=== PATIENT | male | born 1950 | race Caucasian/White ===

== ENCOUNTER 2017-03-25 09:14 | Day surgery (SDC) | payer MEDICARE ==
[~2017-03-25] VITALS: Ht 175.3 cm; Wt 100.7 kg
== END 2017-03-25 14:00 | disposition home or self-care (01) ==
LOC: ORSCSDS 09:14
PROVIDERS: Student in an Organized Health Care Education/Training Program
PROC: 0SGM04Z Fusion of Right Metatarsal-Phalangeal Joint with Internal Fixation Device, Open Approach (ICD-10-PCS; principal; 2017-03-25 10:30)
DX: M20.21 Hallux rigidus, right foot (principal); M19.071 Primary osteoarthritis, right ankle and foot; M79.674 Pain in right toe(s)
CPT/HCPCS: C1776; J0690; J1100; J2250; J2405; J3010; J7120

== ENCOUNTER 2018-03-29 11:53 | Day surgery (SDC) | payer MEDICARE ==
[~2018-03-29] VITALS: Ht 177.8 cm; Wt 99.2 kg
== END 2018-03-29 13:55 | disposition home or self-care (01) ==
LOC: ORSCSDS 11:53
PROVIDERS: Surgery
PROC: 0DJD8ZZ Inspection of Lower Intestinal Tract, Via Natural or Artificial Opening Endoscopic (ICD-10-PCS; principal; 2018-03-29 13:00)
DX: Z12.11 Encounter for screening for malignant neoplasm of colon (principal); K64.8 Other hemorrhoids; Z79.899 Other long term (current) drug therapy; Z79.82 Long term (current) use of aspirin; Z87.891 Personal history of nicotine dependence
CPT/HCPCS: J7120

== ENCOUNTER 2020-06-04 13:30 | Day surgery (SDC) | payer OTHER, MEDICARE ==
[~2020-06-04] VITALS: Ht 177.8 cm; Wt 99.2 kg
[2020-06-04] MEDS ORDERED: MELO7.5 PO (14:40)
[2020-06-04] MEDS ORDERED: TURMERIC500 M2 (14:41)
== END 2020-06-04 17:00 | disposition home or self-care (01) ==
LOC: ORSCSDS 13:30
PROVIDERS: Orthopaedic Surgery
PROC: 0PH Upper Bones, Insertion (ICD-10-PCS; principal; 2020-06-04 14:45)
PROC: 01N50ZZ Release Median Nerve, Open Approach (ICD-10-PCS; principal; 2020-06-04 14:45)
DX: G56.01 Carpal tunnel syndrome, right upper limb (principal); S62.001A Unspecified fracture of navicular [scaphoid] bone of right wrist, initial encounter for closed fracture; G47.33 Obstructive sleep apnea (adult) (pediatric); K21.9 Gastro-esophageal reflux disease without esophagitis; Z87.891 Personal history of nicotine dependence; I10 Essential (primary) hypertension; Z79.82 Long term (current) use of aspirin
CPT/HCPCS: C1713; C1769; J0690; J1885; J2250; J2704; J2795; J3010; J7120

== ENCOUNTER 2024-08-31 03:32 | Observation (INO) | payer OTHER ==
[~2024-08-31] VITALS: Ht 177.8 cm; Wt 92.0 kg
[~2024-08-31 03:32] MED LIST: MELO7.5 PO; TURMERIC500 M2
[2024-08-31 03:53] LABS: BASOPHILS ABSOLUTE AUTO 0.07 K/mm3 (0.00-0.23); BASOPHILS PERCENT AUTO 1 % (0-2); EOSINOPHILS ABSOLUTE AUTO 0.17 K/mm3 (0.00-0.68); EOSINOPHILS PERCENT AUTO 1 % (0-6); Hematocrit 37.5 % (37.0-53.0); Hemoglobin 12.8 g/dL (13.5-17.5); IMMATURE GRAN ABSOLUTE AUTO 0.05 K/mm3 (0.00-0.10); IMMATURE GRAN PERCENT AUTO 0 % (0-1); LYMPHOCYTES ABSOLUTE AUTO 1.27 K/mm3 (0.84-5.20); LYMPHOCYTES PERCENT AUTO 9 % (21-46); MONOCYTES ABSOLUTE AUTO 0.99 K/mm3 (0.16-1.47); MONOCYTES PERCENT AUTO 7 % (4-13); Mean Corpuscular HGB 30.4 pg (26.0-34.0); Mean Corpuscular HGB Conc 34.1 g/dL (31.5-36.5); Mean Corpuscular Volume 89 fL (80-100); Mean Platelet Volume 8.8 fL (9.1-12.4); NEUTROPHILS ABSOLUTE AUTO 11.24 K/mm3 (1.96-9.15); NEUTROPHILS PERCENT AUTO 82 % (41-73); Platelet Count 284 K/mm3 (150-400); RDW Coefficient Variation 12.2 % (11.7-14.2); RDW Standard Deviation 39.6 fL (35.1-46.3); Red Blood Cell Count 4.21 M/mm3 (4.30-5.90); White Blood Cell Count 13.79 K/mm3 (4.00-11.30)
[2024-08-31 04:26] LABS: Albumin, Blood 3.3 g/dL (3.4-5.0); Albumin/Globulin Ratio 0.8 (0.8-1.8); Bilirubin, Total 0.5 mg/dL (0.1-1.0); Bun/Creatinine Ratio 7.9 (12.0-20.0); Creatinine, Blood 11.2 mg/dL (0.60-1.20); Globulin, Blood 4.2 g/dL (2.2-4.0); Potassium, Blood 5.7 mmol/L (3.5-5.5); Total Protein, Blood 7.5 g/dL (6.4-8.2)
[2024-08-31 04:35] LABS: Source, Urine Clean Catch
[2024-08-31 04:38] LABS: Bilirubin, Urine Neg (Neg); Blood, Urine 4+ (Neg); Glucose Qualitative, Urine Neg (Neg); Ketones, Urine Neg (Neg); Leukocyte Esterase, Urine Neg (Neg); Nitrite, Urine Neg (Neg); Protein, Urine 1+ (Neg); Specific Gravity, Urine 1.015 (1.003-1.022); Urobilinogen, Urine NORM (Normal)
[2024-08-31 04:44] LABS: Appearance, Urine Clear (Clear); Color, Urine Pale Yellow (P-Yellow)
[2024-08-31 04:45] LABS: Bacteria Rare /hpf; Squamous Epithelial Cells Rare /hpf (Few); White Blood Cells, Urine 0-2 /hpf (0-5)
[2024-08-31] MEDS ORDERED: NS 1,000 ML IV SCH (04:55)
[2024-08-31] MEDS ORDERED: Acetaminophen 325 MG TABLET PO PRN (05:50)
[2024-08-31] MEDS ORDERED: Ondansetron HCl 2 MG / ML 2ML Vial IV PRN (05:50)
[2024-08-31] MEDS ORDERED: Sodium Bicarb 8.4% Inj 150 MEQ in Dextrose 5% 1,000 ML IV SCH (06:30)
[2024-08-31 09:00] VITALS: BP 151/77
--- NOTE | 2024-08-31 10:39 | NUR ---
ASSUMPTION OF CARE: INFUSIONS: D5 150MEQ BIACARBAT 125 PATIENT IS ALERT AND ORIENTED X 4 ABLE TO MAKE NEEDS KNOWN, PLEASANT, MUCH IMPROVEMENT AFTER SOSA INSERTION BY THE ED, NO ACTUE CONCERNS NOTED AT TIME OF ARRIVAL SLIGHTLY HYPERTENSIVE AT 150'S SYSTOLIC, BLE EDEMA LEFT > RIGHT. DENIES CHEST PAIN PRESSURE OR SOB. PLAN OF CARE CONTINUES.
[2024-08-31 11:03] LABS: Anion Gap 10 mmol/L (3-11); Blood Urea Nitrogen 61 mg/dL (8-24); Bun/Creatinine Ratio 10.9 (12.0-20.0); CO2, Blood 26 mmol/L (21-32); Chloride, Blood 104 mmol/L (98-108); Creatinine, Blood 5.58 mg/dL (0.60-1.20); Glomerular Filtration Rate 10 (60-); Glucose, Blood 131 mg/dL (70-99); Phosphorus, Blood 4.4 mg/dL (2.5-4.9); Potassium, Blood 4.3 mmol/L (3.5-5.5); Sodium, Blood 136 mmol/L (136-145)
[2024-08-31 11:44] VITALS: BP 144/75
[2024-08-31 15:15] VITALS: BP 150/68
[2024-08-31] MEDS ORDERED: Lactated Ringer's 1,000 ML IV SCH (16:10)
--- NOTE | 2024-08-31 17:22 | NUR ---
EOS: ONLY CHANGES FROM ASSUMPTION IS PATIENT SWITCHED TO LR FOR INFUSION, DENIES PAIN OF ANY KIND. MILD SYSTOLIC HYPERTENSION. NO ACUTE CONCERNS FROM THIS RN PLAN OF CARE CONTINUES
[2024-08-31 19:42] VITALS: BP 162/84
[2024-09-01 03:29] VITALS: BP 150/89
[2024-09-01 04:05] LABS: Hematocrit 35.5 % (37.0-53.0); Hemoglobin 11.7 g/dL (13.5-17.5); Mean Corpuscular HGB 29.6 pg (26.0-34.0); Mean Corpuscular Volume 90 fL (80-100); Platelet Count 248 K/mm3 (150-400); RDW Coefficient Variation 12.1 % (11.7-14.2); RDW Standard Deviation 39.8 fL (35.1-46.3); Red Blood Cell Count 3.95 M/mm3 (4.30-5.90); White Blood Cell Count 9.86 K/mm3 (4.00-11.30)
[2024-09-01 04:30] LABS: Bun/Creatinine Ratio 20.1 (12.0-20.0); Calcium, Blood 8.3 mg/dL (8.5-10.1); Creatinine, Blood 0.9 mg/dL (0.60-1.20)
--- NOTE | 2024-09-01 05:04 | NUR ---
SHIFT SUMMARY PT IS A&O X4, ABLE TO MAKE NEEDS KNOWN. VSS, AFEBRILE, SPO2 >92% ON RA. PT USES CPAP WHILE ASLEEP. SOSA DRAINING CLEAR YELLOW URINE TO GRAVITY. PT DENIES SOB OR CP. BED IN LOWEST POSITION, CALL LIGHT IN REACH, BREATHING IS EVEN AND UNLABORED.
[2024-09-01] MEDS ORDERED: Polyethylene Glycol 3350 17 gm PO PRN (06:55)
[2024-09-01 07:27] VITALS: BP 136/69
[2024-09-01] MEDS ORDERED: Tamsulosin HCl 0.4 MG Cap PO SCH (09:00)
[2024-09-01] MEDS ORDERED: CEFP200 PO (11:46)
[2024-09-01] MEDS ORDERED: TAMS.4ER PO (11:47)
--- NOTE | 2024-09-01 14:16 | NUR ---
DISCHARGE NOTE: PT DC'ED AT APPROX 1407 WITH TO TRANSPORT. THIS RN EDUCATED PT ON MAITENENCE OF SOSA CATHETER. BAG WAS CHANGED TO LEG BAG FOR PT COMFORT. PIV REMOVED BEFORE DISCHARGE. PT AND HAD NO QUESTIONS AT TIME OF DISCHARGE.
== END 2024-09-01 15:16 | disposition home or self-care (01) ==
LOC: ER 03:32 → PCU 03:33
PROVIDERS: Emergency Medicine; Hospitalist; ADMIT Student in an Organized Health Care Education/Training Program
DX: N17.9 Acute kidney failure, unspecified (principal); N13.9 Obstructive and reflux uropathy, unspecified; C61 Malignant neoplasm of prostate; E87.5 Hyperkalemia; E87.1 Hypo-osmolality and hyponatremia; Z87.891 Personal history of nicotine dependence; Z79.1 Long term (current) use of non-steroidal anti-inflammatories (NSAID)
CPT/HCPCS: 36415; 51702; 51798; 76770; 80048; 80053; 80069; 81001; 83690; 84484; 85025; 85027; 93005; 93010; 94762; 96361; 96365; 96366; 99285-25; A9270; G0378; J7030; J7070; J7120